=== PATIENT | female | born 1980 | race Two or more races ===

== ENCOUNTER 2018-05-15 19:27 | Emergency (ER) | payer OTHER ==
[~2018-05-15] VITALS: Ht 162.6 cm; Wt 55.8 kg
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
--- NOTE | 2018-05-15 20:10 | NUR ---
FORENSIC ANTHROPOLOGIST DEGRASSE AT BEDSIDE
--- NOTE | 2018-05-15 21:37 | NUR ---
Patient discharged to home in stable condition. Written and verbal after care instructions given. Patient verbalizes understanding of instruction.
[2018-05-15 21:39] VITALS: BP 141/62
== END 2018-05-15 21:40 | disposition home or self-care (01) ==
LOC: EDSEX 19:29 → ER 19:29
DX: S92.355A Nondisplaced fracture of fifth metatarsal bone, left foot, initial encounter for closed fracture (principal); Z90.710 Acquired absence of both cervix and uterus; X50.1XXA Overexertion from prolonged static or awkward postures, initial encounter; Y93.89 Activity, other specified; Y92.89 Other specified places as the place of occurrence of the external cause; Y99.8 Other external cause status
CPT/HCPCS: 73610-TC; 73630-TC